=== PATIENT | female | born 1985 | race Hispanic/Latino ===

== ENCOUNTER 2021-06-07 17:14 | Emergency (ER) | END 2021-06-08 12:04 | disposition home or self-care (01) | LOC: ERS 17:14 | DX: S83.91XA Sprain of unspecified site of right knee, initial encounter (principal); W22.8XXA Striking against or struck by other objects, initial encounter ==

== ENCOUNTER 2022-03-02 16:50 | Emergency (ER) | payer SELFPAY ==
[~2022-03-02 16:50] MED LIST: Iopamidol-370 76% 500 ML 1 ML ONE
[2022-03-02] MEDS ORDERED: Morphine 4 MG/ML VIAL ONE (17:30)
[2022-03-02] MEDS ORDERED: Piperacillin/Tazobactam 3.375 GM VIAL ONE (17:31)
[2022-03-02] MEDS ORDERED: Ketorolac Tromethamine 30 MG/ML VIAL ONE (17:31)
[2022-03-02] MEDS ORDERED: Acetaminophen 500 MG TAB ONE (17:31)
[2022-03-02 17:36] LABS: #Monocytes 0.3 thou/uL (0.11-0.59); %Basophils 0.2 % (0.0-1.0); %Eosinophils 0.3 % (0.0-10.0); %Lymphocytes 10.6 % (21.0-51.0); %Monocytes 3.5 % (0.0-10.0); %Neutrophils 85.3 % (42.0-75.0); Mean Corpuscular HGB CONC 34.1 g/dL (32.0-36.0); Mean Corpuscular Hemoglobin 28.5 pg (27.0-31.0); Mean Corpuscular Volume 83.4 fL (78.0-98.0); Platelet Count 222 thou/uL (130-400); RBC Distribution Width 13.3 % (11.5-14.5); Red Blood Cell (RBC) Count 4.91 mill/uL (4.20-5.40); White Blood Cell (WBC) Count 9.3 thou/uL (4.8-10.8)
[2022-03-02 17:57] LABS: ALT (SGPT) 69 U/L (8-55); AST (SGOT) 38 U/L (5-34); Albumin 4.5 g/dL (3.5-5.0); Alkaline Phosphatase 126 U/L (40-110); Anion Gap 19 mmol/L (10-20); BUN (Urea Nitrogen) 13 mg/dL (7.0-18.7); Bilirubin, Total 0.8 mg/dL (0.2-1.2); Calc. Creatinine Clearance 0 mL/min (70-130); Carbon Dioxide 19 mmol/L (22-29); Chloride 97 mmol/L (98-107); Globulin 3.5 g/dL (2.4-3.5); Glucose 131 mg/dL (70-105); Lipase 12 U/L (8-78); Magnesium 1.3 mg/dL (1.6-2.6); Potassium 3.7 mmol/L (3.5-5.1); Sodium 131 mmol/L (136-145)
[2022-03-02 19:04] LABS: Bilirubin Negative (Negative); Blood, Urine Negative (Negative); Clarity Clear (Clear); Glucose, Urine (Dipstick) Normal (Negative); Ketone, Urine Negative (Negative); Leukocyte Negative Leu/uL (Negative); Nitrite Negative (Negative); Protein, Urine (Dipstick) Negative (Neg-Trace); Specific Gravity, Urine 1.009 (1.002-1.036); Urobilinogen Normal mg/dL (Less than 2); pH, Urine 7.5 (5.0-9.0)
[2022-03-02] MEDS ORDERED: Ondansetron PF 4 MG/2 ML Vial ONE (19:11)
[2022-03-02 19:25] LABS: SARS-CoV-2 NAA Rapid Test DETECTED (NotDetected)
[2022-03-02 20:40] LABS: Lactic Acid 2.4 mmol/L (0.5-2.2)
== END 2022-03-02 20:38 | disposition home or self-care (01) ==
LOC: ERS 16:50
DX: U07.1 COVID-19 (principal)
CPT/HCPCS: 36415; 71045; 71275; 74177; 76705; 80053; 81003; 83605; 83690; 83735; 84484; 85025; 85379; 87040; 87086; 93005; 96361; 96374; 96375; J1885; J2270; J2405; J2543; Q9967; U0002

== ENCOUNTER 2022-12-09 04:12 | Emergency (ER) | payer SELFPAY ==
[2022-12-09] MEDS ORDERED: Ibuprofen 800 MG TAB ONE (04:43)
[2022-12-09] MEDS ORDERED: Acetaminophen 500 MG TAB ONE (04:43)
== END 2022-12-09 04:55 | disposition home or self-care (01) ==
LOC: ERS 04:12
DX: N61.0 Mastitis without abscess (principal)
CPT/HCPCS: 99283

== ENCOUNTER 2023-01-14 21:34 | Emergency (ER) | payer SELFPAY | END 2023-01-14 22:48 | disposition home or self-care (01) | LOC: ERS 21:34 | DX: N61.0 Mastitis without abscess (principal) | CPT/HCPCS: 99283 ==